=== PATIENT | male | born 1965 | race Caucasian/White ===

== ENCOUNTER 2018-12-12 07:39 | Day surgery (SDC) | payer BC ==
[~2018-12-12 07:39] MED LIST: Lactated Ringers 1,000 ML IV SCH
[2018-12-12] MEDS ORDERED: Propofol 200 MG/20 ML SDV ONE ×2 (09:19→10:35)
[2018-12-12] MEDS ORDERED: fentaNYL 100 MCG/2 ML SDV ONE (09:19)
--- NOTE | 2018-12-12 17:07 | OR ---
DATE OF SURGERY: 12/12/2018. REFERRING PROVIDER: ALEKSANDAR Sevilla PRE-OPERATIVE DIAGNOSES: 1. Screening colonoscopy. 2. Positive family history of colon polyps in mother. POST-OPERATIVE DIAGNOSES: 1. Mild sigmoid diverticulosis. 2. Otherwise normal colon. PROCEDURE: Colonoscopy. SURGEON: Eladio Cummings M.D. ANESTHESIA: Monitored anesthesia care. BOWEL PREP: Kunal Pritchard is a 53-year-old male, was brought to the endoscopy suite after discussing risks and benefits of the procedure. Informed consent was obtained for conscious sedation and colonoscopy with or without biopsy and/or polypectomy. We also discussed possibility of missed lesions. Pre-procedure exam was unremarkable. IV, oxygen, and monitors were placed. The patient was placed in the left lateral decubitus position. Sedation was administered and a digital rectal exam was performed and remarkable for moderately enlarged prostate without any palpable nodules. Colonoscope was passed into the rectum and slowly advanced all the way to the cecum. Cecum was viewed and photographed. The colonoscope was slowly withdrawn and the mucosa was closed observed in a direct circumferential manner. The ascending colon was unremarkable. The transverse colon was unremarkable. The descending colon was unremarkable. The sigmoid colon was remarkable for some mild diverticulosis. Retroflexion was performed and rectal mucosa was unremarkable. Scope was removed. The patient tolerated the procedure well. The patient was monitored until that baseline status. Discharge instructions were reviewed and the patient was discharged in good condition. COMPLICATIONS: None. TOTAL TIME: 14 minutes. ESTIMATED BLOOD LOSS: None. RECOMMENDATIONS/FOLLOW-UP: Recommend repeat colonoscopy in 10 years. Also recommended daily low-dose aspirin which he can start at any time. I would like to kindly thank ALEKSANDAR Sevilla for this referral. DMB: 12/12/2018 10:55:43 MODL: 12/12/2018 16:59:17 /[id number]
== END 2018-12-12 11:50 | disposition home or self-care (01) ==
LOC: VM.SDS 07:39
PROVIDERS: ATTEND Family Medicine
DX: Z12.11 Encounter for screening for malignant neoplasm of colon (principal); K57.30 Diverticulosis of large intestine without perforation or abscess without bleeding; E11.9 Type 2 diabetes mellitus without complications; E78.5 Hyperlipidemia, unspecified; J01.41 Acute recurrent pansinusitis; I10 Essential (primary) hypertension; F17.210 Nicotine dependence, cigarettes, uncomplicated; Z83.71 Family history of colonic polyps; Z79.84 Long term (current) use of oral hypoglycemic drugs; Z79.899 Other long term (current) drug therapy
CPT/HCPCS: 45378; 82962; J2704; J3010; J7120